=== PATIENT | female | born 1950 | race Caucasian/White ===

== ENCOUNTER 2019-02-12 16:55 | Emergency (ER) | payer MEDICARE, BC ==
[~2019-02-12] VITALS: Ht 162.6 cm; Wt 70.0 kg
[2019-02-12 17:19] LABS: BASOPHILS % (AUTO) 0.8 % (0-1); EOSINOPHILS # (AUTO) 0.2 X10'3 (0-0.9); EOSINOPHILS % (AUTO) 3.3 % (0-6); HEMOGLOBIN 13.4 g/dl (12.0-16.0); LYMPHOCYTES # (AUTO) 2.2 X10'3 (1.1-4.8); LYMPHOCYTES % (AUTO) 35.9 % (21-51); MEAN CORPUSCULAR HEMOGLOBIN 29.3 PG (27.0-31.0); MEAN CORPUSCULAR HGB CONC 33.6 g/dL (33.0-36.5); MEAN CORPUSCULAR VOLUME 87.4 FL (78-98); MEAN PLATELET VOLUME 7.6 FL (7.4-10.4); MONOCYTES # (AUTO) 0.8 X10'3 (0-0.9); MONOCYTES % (AUTO) 12.6 % (2-12); NEUTROPHILS # (AUTO) 2.9 X10'3 (1.8-7.7); NEUTROPHILS % (AUTO) 47.4 % (42-75); PLATELET COUNT 328 X10'3 (140-440); RED BLOOD COUNT 4.58 X10'6 (4.20-5.60); WHITE BLOOD COUNT 6.1 X10'3 (4.5-11.0)
[2019-02-12 17:29] LABS: PARTIAL THROMBOPLASTIN TIME 25 SECONDS (22-32)
[2019-02-12 17:31] LABS: ALANINE AMINOTRANSFERASE 20 U/L (12-78); ALBUMIN 3.6 G/DL (3.4-5.0); ALKALINE PHOSPHATASE 112 IU/L (46-116); ANION GAP 10 (8-16); ASPARTATE AMINO TRANSFERASE 15 U/L (10-37); BILIRUBIN,TOTAL 0.2 MG/DL (0.1-1.0); BLOOD UREA NITROGEN 17 MG/DL (7-18); BUN/CREATININE RATIO 19.5 (6.6-38.0); CHLORIDE 104 MMOL/L (99-107); CREATININE 0.87 MG/DL (0.40-0.90); SODIUM 139 MMOL/L (135-145); TOTAL CARBON DIOXIDE 24.7 MMOL/L (24-32); TOTAL PROTEIN 7.2 G/DL (6.4-8.2); eGFR 65 ML/MIN
--- NOTE | 2019-02-12 17:37 | NUR ---
PT REPORTED RECENT TRAVEL TO [facility] AND EXPOSURE TO A "CONTAGIOUS PARASITE". PLACED PT IN ROOM AND PLACED HEPA FILTER IN ROOM.
[2019-02-12 17:40] LABS: GLUCOSE 157 MG/DL (70-104)
--- NOTE | 2019-02-12 18:01 | NUR ---
DR CROCKETT FINISHED IS ROOM AND STATES NO NEED TO HAVE HEPA FILTER MACHINE IN ROOM, REMOVED HEPA
--- NOTE | 2019-02-12 18:50 | NUR ---
PT WITH NO PAIN UNLES SHE MOVES HER HEAD BACKA ND THEN GETS POSTERIOR NECK PAIN THAT RADIATES TO HER RIGHT LATERAL NECK TO RIGHT SHOUDER AND WRAPS AROUDN FROM RIGHT MED BACK TO RIGHT CHEST. STABLE VS. AT BEDSIDE.
--- NOTE | 2019-02-12 19:14 | NUR ---
2 hr trop drawn.
[2019-02-12 19:54] VITALS: BP 104/67
== END 2019-02-12 19:55 | disposition home or self-care (01) ==
LOC: ER 16:55
DX: R07.89 Other chest pain (principal); R19.7 Diarrhea, unspecified; R10.9 Unspecified abdominal pain; I25.10 Atherosclerotic heart disease of native coronary artery without angina pectoris; Z98.61 Coronary angioplasty status
CPT/HCPCS: 36415; 71045; 80053; 84484; 85025; 85610; 85730; 93005; 99284

== ENCOUNTER 2023-01-14 09:23 | Day surgery (SDC) | payer MEDICARE, BC ==
[~2023-01-14] VITALS: Ht 162.6 cm; Wt 65.9 kg
[2023-01-14] VITALS (9 sets, daily range): BP systolic 126–163; BP diastolic 63–77
[2023-01-14] MEDS ORDERED: normal saline 1,000 ML IV SCH (09:55)
[2023-01-14] MEDS ORDERED: diphenhydrAMINE 25mg capsule PO PRN (09:55)
[2023-01-14] MEDS ORDERED: ROSU10TA28 PO (10:23)
[2023-01-14] MEDS ORDERED: EZET10TA48 PO (10:23)
[2023-01-14] MEDS ORDERED: CLOP75TA34 PO (10:23)
[2023-01-14] MEDS ORDERED: VALA100031 PO (10:23)
[2023-01-14] MEDS ORDERED: UBID100C45 PO (10:26)
[2023-01-14] MEDS ORDERED: CHOL200012 PO (10:26)
[2023-01-14 11:11] LABS: BASOPHILS # (AUTO) 0.1 X10'3 (0-0.2); EOSINOPHILS # (AUTO) 0.2 X10'3 (0-0.9); EOSINOPHILS % (AUTO) 2.8 % (0-6); HEMATOCRIT 41.4 % (35.0-45.0); HEMOGLOBIN 13.7 g/dl (12.0-16.0); LYMPHOCYTES # (AUTO) 1.8 X10'3 (1.1-4.8); LYMPHOCYTES % (AUTO) 29.8 % (21-51); MEAN CORPUSCULAR HEMOGLOBIN 29.3 PG (27.0-31.0); MEAN CORPUSCULAR VOLUME 88.6 FL (78-98); MEAN PLATELET VOLUME 8.1 FL (7.4-10.4); MONOCYTES # (AUTO) 0.7 X10'3 (0-0.9); MONOCYTES % (AUTO) 11.3 % (2-12); NEUTROPHILS # (AUTO) 3.3 X10'3 (1.8-7.7); NEUTROPHILS % (AUTO) 55.1 % (42-75); PLATELET COUNT 289 X10'3 (140-440); RED BLOOD COUNT 4.67 X10'6 (4.20-5.60); RED CELL DISTRIBUTION WIDTH 13.5 % (11.5-14.5)
[2023-01-14 11:32] LABS: ALBUMIN 4.5 G/DL (3.4-5.0); ANION GAP 7 (8-16); CALCIUM 9.5 MG/DL (8.5-10.1); CHLORIDE 102 MMOL/L (99-107); CREATININE 0.89 MG/DL (0.40-0.90); GLUCOSE 133 MG/DL (70-104); POTASSIUM 4.3 MMOL/L (3.5-5.1); SODIUM 138 MMOL/L (135-145); TOTAL CARBON DIOXIDE 28.7 MMOL/L (24-32); eGFR 62 ML/MIN
[2023-01-14 11:39] LABS: BLOOD UREA NITROGEN 10 MG/DL (7-18); BUN/CREATININE RATIO 11.2 (6.6-38.0)
[2023-01-14] MEDS ORDERED: nitroGLYCERIN-Tridil 50MG/D5W 250 ML IV ONE (12:36)
[2023-01-14] MEDS ORDERED: LIDOcaine 1% 30ml preserv. free vial ONE (12:37)
[2023-01-14] MEDS ORDERED: fentaNYL/PF 50MCG/1 ML 2ML syringe ONE ×2 (12:37→14:28)
[2023-01-14] MEDS ORDERED: verapamil 2.5 mg/ml inj IV ONE (12:37)
[2023-01-14] MEDS ORDERED: heparin 1,000unit/ml 10ml vial 10 ML ONE (12:37)
[2023-01-14] MEDS ORDERED: midazolam 1 mg/ML 2ml injection ONE ×4 (12:37→14:03)
[2023-01-14] MEDS ORDERED: iohexol 350MG/ML 100ml bottle IV ONE (12:37)
[2023-01-14] MEDS ORDERED: clopidogrel 300mg tablet ONE (14:50)
[2023-01-14] MEDS ORDERED: proCHLORperazine 10 MG/2 ml inj IV PRN (15:30)
[2023-01-14] MEDS ORDERED: HYDROcodone/acetaminophen 5mg/325mg tablet PO PRN (15:30)
[2023-01-14] MEDS ORDERED: ondansetron/PF 4mg/2ml inj IV PRN (15:30)
[2023-01-14] MEDS ORDERED: normal saline 1000ml 1,000 ML IV SCH (15:30)
[2023-01-14] MEDS ORDERED: HYDROcodone/acetaminophen 10/325mg tab PO PRN (15:30)
== END 2023-01-14 18:10 | disposition home or self-care (01) ==
LOC: SSTAY O 09:23
PROVIDERS: ATTEND Internal Medicine Cardiovascular Disease
DX: T82.855A Stenosis of coronary artery stent, initial encounter (principal); I25.10 Atherosclerotic heart disease of native coronary artery without angina pectoris; K21.9 Gastro-esophageal reflux disease without esophagitis; E78.00 Pure hypercholesterolemia, unspecified; E11.9 Type 2 diabetes mellitus without complications; Z95.5 Presence of coronary angioplasty implant and graft; Z79.899 Other long term (current) drug therapy; Z79.01 Long term (current) use of anticoagulants; Z90.710 Acquired absence of both cervix and uterus; Z96.641 Presence of right artificial hip joint; Z88.5 Allergy status to narcotic agent; Z82.49 Family history of ischemic heart disease and other diseases of the circulatory system; Y83.8 Other surgical procedures as the cause of abnormal reaction of the patient, or of later complication, without mention of misadventure at the time of the procedure; Y92.89 Other specified places as the place of occurrence of the external cause
CPT/HCPCS: 36415; 80048; 83735; 85025; 85610; 93005; 93458; 99152; 99153; A6258; C1725; C1751; C1760; C1769; C1874; C1894; C9600; J1644; J2250; J3010; J3490; J7030; Q0163; Q9967; A6402

== ENCOUNTER → 2024-04-05 | Outpatient (CLI) | payer MEDICARE, BC ==
[~2024-04-05] MED LIST: CHOL200012 PO; CLOP75TA34 PO; EZET10TA48 PO; ROSU10TA28 PO; UBID100C45 PO; VALA100031 PO
== END | disposition home or self-care (01) ==
LOC: MRI 10:26
PROVIDERS: ATTEND Podiatrist Foot & Ankle Surgery
DX: S93.492A Sprain of other ligament of left ankle, initial encounter (principal); M25.472 Effusion, left ankle; X58.XXXA Exposure to other specified factors, initial encounter; Y93.89 Activity, other specified; Y92.89 Other specified places as the place of occurrence of the external cause; Y99.8 Other external cause status; R60.9 Edema, unspecified
CPT/HCPCS: 73721

== ENCOUNTER 2025-04-23 10:13 | Day surgery (SDC) | payer MEDICARE, BC ==
[~2025-04-23] VITALS: Ht 162.6 cm; Wt 62.3 kg
[2025-04-23] VITALS (11 sets, daily range): BP systolic 124–162; BP diastolic 62–82; PULSE 52–69; RESP 12–17; TEMP 98.4; O2SAT 96–99
[~2025-04-23 10:13] MED LIST changes: -ROSU10TA28 PO; +ROSU10TA72 PO
--- NOTE | 2025-04-23 10:47 | ELECTROCARDIOGRAPH REPORT ---
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 Vidya Jones Measurements Intervals [place] Rate: 63 P: 45 [place]: 124 QRS: 69 QRSD: 88 T: 49 QT: 419 QTc: 429 Interpretive Statements Sinus rhythm Electronically Signed On 04-25-2025 19:11:[address] Vidya Jones Please click the below link to view image of tracing.
[2025-04-23 11:26] LABS: BASOPHILS % (AUTO) 0.6 % (0-1); EOSINOPHILS # (AUTO) 0.2 X10'3 (0-0.9); EOSINOPHILS % (AUTO) 2.8 % (0-6); HEMATOCRIT 41.3 % (35.0-45.0); HEMOGLOBIN 13.9 g/dl (12.0-16.0); LYMPHOCYTES # (AUTO) 1.8 X10'3 (1.1-4.8); LYMPHOCYTES % (AUTO) 29.9 % (21-51); MEAN CORPUSCULAR HEMOGLOBIN 28.7 PG (27.0-31.0); MEAN CORPUSCULAR HGB CONC 33.5 g/dL (33.0-36.5); MEAN CORPUSCULAR VOLUME 85.7 FL (78-98); MEAN PLATELET VOLUME 7.9 FL (7.4-10.4); MONOCYTES # (AUTO) 0.7 X10'3 (0-0.9); MONOCYTES % (AUTO) 12.2 % (2-12); NEUTROPHILS # (AUTO) 3.2 X10'3 (1.8-7.7); NEUTROPHILS % (AUTO) 54.5 % (42-75); PLATELET COUNT 291 X10'3 (140-440); RED BLOOD COUNT 4.82 X10'6 (4.20-5.60)
[2025-04-23 11:34] LABS: PROTHROMBIN TIME 10.3 SECONDS (9.0-12.0)
[2025-04-23 11:36] LABS: ALBUMIN 4.2 G/DL (3.4-5.0); ANION GAP 10 (8-16); BLOOD UREA NITROGEN 9 MG/DL (7-18); BUN/CREATININE RATIO 10.2 (10.0-20.0); CHLORIDE 103 MMOL/L (99-107); CREATININE 0.88 MG/DL (0.40-0.90); GLUCOSE 139 MG/DL (70-104); MAGNESIUM 2.1 MG/DL (1.5-2.4); POTASSIUM 4.1 MMOL/L (3.5-5.1); SODIUM 139 MMOL/L (135-145); eCRCL 48 ML/MIN; eGFR 63 ML/MIN
[2025-04-23] MEDS: sodium bicarbonate 1meq/ml syr 150 ML in dextrose 5%-water 1,000 ML IV ONE (11:39)
[2025-04-23] MEDS: diphenhydrAMINE 25mg capsule PO PRN (11:40)
[2025-04-23] MEDS: normal saline 1,000 ML IV SCH (11:40)
[2025-04-23] MEDS ORDERED: verapamil 2.5 mg/ml inj IV ONE (12:57)
[2025-04-23] MEDS ORDERED: LIDOcaine 1% (10mg/ml) 2ml vial ONE (12:57)
[2025-04-23] MEDS ORDERED: nitroGLYCERIN 500mcg/5mL D5W 5 ML IV ONE (12:58)
[2025-04-23] MEDS ORDERED: fentaNYL/PF 50MCG/1 ML 2ML syringe ONE (12:58)
[2025-04-23] MEDS ORDERED: iohexol 350 MG/ML 50ML vial IV ONE ×2 (12:58→13:53)
[2025-04-23] MEDS ORDERED: heparin 1,000unit/ml 10ml vial 10 ML ONE (12:58)
[2025-04-23] MEDS ORDERED: iohexol 350MG/ML 100ml bottle IV ONE ×2 (12:58→13:57)
[2025-04-23] MEDS ORDERED: midazolam 1 mg/ML 2ml injection ONE ×3 (12:58→14:33)
[2025-04-23] MEDS ORDERED: LIDOcaine 1% 30ml preserv. free vial ONE (13:58)
[2025-04-23] MEDS ORDERED: atropine 0.1mg/ml 10ml syringe ONE (14:21)
[2025-04-23] MEDS ORDERED: clopidogrel 300mg tablet ONE (15:09)
[2025-04-23] MEDS ORDERED: aspirin 81mg tab.chew ONE (15:09)
[2025-04-23] MEDS ORDERED: proCHLORperazine 10 MG/2 ml inj ONE (15:18)
--- NOTE | 2025-04-23 15:28 | ELECTROCARDIOGRAPH REPORT ---
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 Vidya Jones Measurements Intervals [place] Rate: 65 P: -30 [place]: 135 QRS: 50 QRSD: 89 T: 60 QT: 427 QTc: 444 Interpretive Statements Sinus rhythm Minimal ST depression ST elevation, consider inferior injury Electronically Signed On 04-25-2025 19:12:[address] Vidya Jones Please click the below link to view image of tracing.
[2025-04-23] MEDS: nitroGLYCERIN 0.4mg SUBLingual tab SL ONE (15:32)
[2025-04-23] MEDS ORDERED: proCHLORperazine 10 MG/2 ml inj IV PRN (15:45)
[2025-04-23] MEDS ORDERED: ondansetron/PF 4mg/2ml inj IV PRN (15:45)
[2025-04-23] MEDS ORDERED: HYDROcodone/acetaminophen 5mg/325mg tablet PO PRN (15:45)
[2025-04-23] MEDS ORDERED: HYDROcodone/acetaminophen 10/325mg tab PO PRN (15:45)
--- NOTE | 2025-04-23 16:27 | CARDIOLOGY REPORT ---
DATE OF SERVICE: 04/23/2025 DICTATING PHYSICIAN: NICO CURTIS DO CARDIAC CATHETERIZATION REPORT REFERRING PHYSICIAN: Nico Curtis DO CLINICAL HISTORY: This 74-year-old woman is status post previous stenting in 2004 and again in 2012. She has received stents to the proximal circumflex coronary artery and to the proximal and mid right coronary artery. She has recently been experiencing band-like arm discomfort, which she has associated with angina in the past. On 04/20/2025, she had a cardiac PET scan demonstrating a large area of reversible ischemia involving the anteroapical region of the left ventricle. PROCEDURES PERFORMED: * Left heart catheterization. * Left ventriculography. * Selective coronary arteriography. * PTCA/complex, bifurcation angioplasty/stent placement (ostial RCA and a very large supramarginal branch supplying all marginal segments to the right ventricle. * A 90-minute conscious sedation supervision and percutaneous arteriotomy closure (Perclose). DESCRIPTION OF PROCEDURE: The patient was sedated with fentanyl and Versed. She was then prepared and draped in the usual manner. The right radial area was infiltrated with 1% lidocaine. Using a micropuncture set and a Seldinger technique, a 6-Mongolian sheath was placed in this vessel. A 200 mcg of nitroglycerin and 2.5 mg of verapamil were directly injected into the right coronary, 5,000 units of heparin were given directly into her peripheral IV. Left heart catheterization and left ventriculography were performed using a 6-Mongolian pigtail catheter. Coronary arteriography was performed using a 6-Mongolian Kimny catheter for the right coronary artery and a 5-Mongolian Ultimate I catheter for the left coronary artery. PTCA/STENT PLACEMENT: Because this patient had a complex bifurcation lesion at the origin of the right coronary, a 7- or 8-Mongolian procedural catheter was intended for use; however, the patient is small enough, her radial artery was not thought to be large enough to accommodate a 7-Mongolian. Therefore, an 8-Mongolian sheath assembly was placed in the right common femoral artery using the same standard technique. Using this sheath, an 8-Mongolian side holed #4 Janet guiding catheter was placed at the ostium of the right coronary artery. PT2 and Whisper wires were used to cannulate both the supramarginal branch and the main stem right coronary. Next, the right coronary was dilated first with a 1.2 mm balloon followed by a 2.25 mm balloon. Next, the origin of the supramarginal was dilated with a 2.25 x 8 mm balloon. After removal of the supramarginal balloon, a 2.5 x 8 mm [place] drug-eluting stent was deployed across the residual stenosis in this vessel and deployed 8 atmospheres. Next, there was an attempt to place a 3 x 18 mm [place] drug-eluting stent in the main stem right coronary; however, it would not pass the newly placed stent, which was closely adjacent to the main stem origin. Therefore, the ostium of the main stem right was again dilated with a 2.2 followed by a 2.5 mm balloon. After enlarging the opening of the main stem, a 3 x 18 mm Hung [place] drug-eluting stent was deployed into the right coronary. This stent was eventually inflated to a maximum of 18 atmospheres. Then, there was a kissing balloon inflation of both the supramarginal stent and the main stem right coronary stent to a maximum of 6 atmospheres. After test injections demonstrated stability of the treated area, final arteriography was performed. RESULTS: HEMODYNAMIC DATA: The left ventricular end diastolic pressure was 14 mmHg. There was no gradient across the aortic valve. LEFT VENTRICULOGRAM: The left ventriculogram was technically satisfactory. There was supernormal contractility with an LVEF of at least 75 mmHg. A stent was visible in the mid right coronary and in the proximal circumflex coronary artery. A stent was not readily visible in the proximal right coronary in the [place] view. CORONARY ARTERIOGRAPHY: The coronary arteriograms are technically satisfactory. The patient appeared to have a right dominant system. RIGHT CORONARY ARTERY: The right coronary was a medium-sized vessel. There was a small posterior descending branch and a small terminal posterolateral branch. The ostium of the right coronary was narrowed by about 99%. The ostium of a very close by supramarginal (one branch applying all of the marginal side branches to the right ventricle) also was narrowed by about 90-95%. A stent just ahead of these areas of narrowing as well as a stent in the mid vessel was widely patent. LEFT MAIN CORONARY ARTERY: The left main was a large unobstructed vessel trifurcating the left anterior descending, intermediate and circumflex coronary arteries. LEFT ANTERIOR DESCENDING CORONARY ARTERY: The LAD was a medium-sized vessel with transapical distribution. There was a large bifurcated diagonal branch emanating from the proximal vessel. One branch of the diagonal was narrowed proximally by about 50%. The mid LAD appeared to be narrowed by about 50%. INTERMEDIATE ARTERY: The intermediate was a small vessel that may have been narrowed by about 75% at its origin, but the diameter was well below 2 mm in size. CIRCUMFLEX CORONARY ARTERY: The circumflex was a large main stem vessel. There was a small first obtuse marginal and a large branch giving off a second obtuse marginal and ending as a very large posterolateral branch. There were no obstructive lesions in the branch as described above; however, there was about a 50% narrowing in the atrioventricular groove vessel, which did not provide any side branches to the LAD. PTCA/STENT PLACEMENT: Following complex balloon angioplasty and stenting of the ostial right coronary and the supramarginal branch, there was no significant residual stenosis and brisk runoff distally. CONCLUSIONS: * Complex severe obstructive coronary disease, principally involving the ostium of both the main stem right coronary and a nearly separate ostium for a large branch applying all acute marginal sub-branches to the right ventricle. * There were other areas of narrowing not regarded as high-grade; however, there was about a 50% narrowing of the mid LAD. * Previously placed stent in the right coronary (but not across the ostium was narrowed by about 30-40% on the distal end, but a stent in the mid vessel was widely patent). Also, a stent in the proximal circumflex coronary artery was widely patent. * Successful complex stenting of the ostium of the right coronary artery and the ostium of a supramarginal branch to the right coronary. Following the interventions, there was no significant residual stenosis. The ANGELA flow before and after was graded as 3. * Left ventricular function was hyperdynamic. The ejection fraction was at least 70-75%. RECOMMENDATIONS: Ongoing medical therapy. NICO CURTIS DO TID: [id number] RECEIPT: [id number] HARSHAD RUELAS
[2025-04-23] MEDS ORDERED: ASPI-1265 PO (17:18)
== END 2025-04-23 19:00 | disposition home or self-care (01) ==
LOC: SSTAY O 10:13
PROVIDERS: ATTEND Internal Medicine Cardiovascular Disease
DX: R07.89 Other chest pain (principal); I25.10 Atherosclerotic heart disease of native coronary artery without angina pectoris; E78.00 Pure hypercholesterolemia, unspecified; E11.9 Type 2 diabetes mellitus without complications; K21.9 Gastro-esophageal reflux disease without esophagitis; Z95.5 Presence of coronary angioplasty implant and graft; Z83.3 Family history of diabetes mellitus; Z88.6 Allergy status to analgesic agent
CPT/HCPCS: 36415; 80048; 83735; 85025; 85610; 93005; 93458; 99152; 99153; A6258; A6402; C1725; C1751; C1760; C1769; C1874; C1894; C9600; C9601; J0780; J1644; J2003; J2250; J3010; J3490; J7030; J7070; Q0163; Q9967; A6449; J0461